=== PATIENT | male | born 1995 | race Caucasian/White ===

== ENCOUNTER 2020-11-07 23:35 | Emergency (ER) | payer SELFPAY ==
[~2020-11-07] VITALS: Ht 175.3 cm; Wt 99.8 kg
[2020-11-07 23:48] VITALS: BP_SYST 134
--- NOTE | 2020-11-07 23:54 | NUR ---
Patient triaged and placed in waiting room. VSS and patient appears in no acute distress at this time. Accompanied by FAMILY, awaiting available bed, and MD notified of need for MSE.
--- NOTE | 2020-11-07 23:55 | NUR ---
WALKED IN C/O RIGHT LEG NUMBNESS X TODAY AFTER SITTING DOWN. PT IS AMBULATORY WITH A STEADY GAIT. PT IS ALSO C/O CUTS TO PENIS FROM DRY SKIN
--- NOTE | 2020-11-08 02:20 | NUR ---
Dr. Carbajal chair side in triage
--- NOTE | 2020-11-08 02:29 | NUR ---
BS 200
[2020-11-08] MEDS ORDERED: CLOT30CR25 TP (03:02)
[2020-11-08] MEDS ORDERED: IBUP-1969 PO (03:05)
[2020-11-08 03:10] VITALS: BP_SYST 130
--- NOTE | 2020-11-08 03:10 | NUR ---
Patient given written and verbal discharge instructions and verbalizes understanding. ER MD discussed with patient the results and treatment provided. Patient in stable condition. ID arm band removed. Rx of MOTRIN, CLOTRMAZOLE given. Patient educated on pain management and to follow up with PMD. Pain Scale 0/10. Opportunity for questions provided and answered. Medication side effect fact sheet provided.
== END 2020-11-08 03:10 | disposition home or self-care (01) ==
LOC: SED 23:35
DX: N48.1 Balanitis (principal); Z79.899 Other long term (current) drug therapy
CPT/HCPCS: 82962; 99282